=== PATIENT | male | born 1985 | race American Indian/Alaskan Native ===

== ENCOUNTER 2021-05-09 22:20 | Emergency (ER) | payer OTHER ==
[~2021-05-09] VITALS: Ht 157.5 cm; Wt 68.0 kg
[2021-05-09 22:53] LABS: URINE BILIRUBIN 1+ (Negative); URINE BLOOD 3+ (Negative); URINE CLARITY SL CLOUDY; URINE COLOR RED; URINE GLUCOSE-RANDOM* NEGATIVE (Negative); URINE KETONES NEGATIVE (Negative); URINE NITRITE-REFLEX NEGATIVE (Negative); URINE PROTEIN (DIPSTICK) 3+ (Negative)
[2021-05-09 22:54] LABS: URINE LEUKOCYTES-REFLEX 2+ (Negative)
[2021-05-09 23:11] LABS: CRYSTALS None Seen /LPF (None Seen); HYALINE CASTS 0-3 Few /LPF (None Seen); MUCUS 0-3 Light strn/LPF (None Seen); SQUAMOUS 0-3 Few /LPF (0-3); URINE RBC >20 Many /HPF (NONE SEEN)
[2021-05-09 23:54] LABS: ABSOLUTE NEUTROPHILS 2.8 thou/uL (1.4-8.2); BASOPHILS 0.2 % (0.0-2.0); HEMATOCRIT 37.1 % (42.0-52.0); HEMOGLOBIN 12.9 gm/dL (14.0-18.0); LYMPHOCYTES 39.9 % (24.0-44.0); MCH 30.1 pg (26.0-34.0); MCHC 34.9 g/dL (28.0-37.0); MCV 86.2 fL (80.0-100.0); MONOCYTES 5.2 % (1.0-8.0); PLATELET COUNT 253 thou/uL (150-400); POLYS 49.7 % (36.0-66.0); RDW 13.8 % (10.5-14.5); WBC 5.7 thou/uL (4.0-11.0)
[2021-05-10 00:05] LABS: CALCIUM 8.7 mg/dL (8.5-10.1); CREATININE 1.3 mg/dL (0.7-1.3); POTASSIUM 3.7 mmol/L (3.5-5.1)
[2021-05-10] MEDS ORDERED: NORCO7.5 PO (00:16)
[2021-05-10] MEDS ORDERED: ZOFRAN ODT4 MG PO (00:16)
[2021-05-10] MEDS ORDERED: CEPHALEXIN500 MG PO (00:16)
[2021-05-10 00:42] VITALS: BP 157/89
== END 2021-05-10 01:00 | disposition home or self-care (01) ==
LOC: ER 22:20
PROVIDERS: Emergency Medicine; Nurse Practitioner
DX: N39.0 Urinary tract infection, site not specified (principal); Q61.3 Polycystic kidney, unspecified; R31.9 Hematuria, unspecified; R73.9 Hyperglycemia, unspecified; R10.32 Left lower quadrant pain; Z98.890 Other specified postprocedural states